=== PATIENT | female | born 1980 | race Caucasian/White ===

== ENCOUNTER 2021-02-07 09:09 | Outpatient (CLI) | payer BC | END 2021-02-07 09:10 | disposition home or self-care (01) | LOC: BICMAMMO 09:09 | PROVIDERS: ATTEND Family Medicine | DX: Z12.31 Encounter for screening mammogram for malignant neoplasm of breast (principal); N64.89 Other specified disorders of breast; Z80.3 Family history of malignant neoplasm of breast | CPT/HCPCS: 77063; 77067 ==

== ENCOUNTER 2021-02-10 13:30 | Outpatient (CLI) | payer BC | END 2021-02-10 13:31 | disposition home or self-care (01) | LOC: BICMAMMO 13:30 | PROVIDERS: ATTEND Family Medicine | DX: N64.89 Other specified disorders of breast (principal) | CPT/HCPCS: G0279 ==